=== PATIENT | male | born 1980 | race Caucasian/White ===

== ENCOUNTER 2022-05-09 13:34 | Outpatient (CLI) | payer OTHER, SELFPAY ==
[2022-05-09 16:11] LABS: Albumin* 4.8 g/dL (3.3-5.0); Chloride* 107 mmol/L (96-114); Sodium* 141 mmol/L (135-149)
[2022-05-09 16:13] LABS: Bilirubin Total* 0.8 mg/dL (0.1-1.5); Carbon Dioxide* 27 mmol/L (20-32); Cholesterol* 311 mg/dL (90-199); Creatinine* 1.1 mg/dL (0.5-1.5); Estimated Glomerular Filt Rate 86 ml/min
[2022-05-09 16:14] LABS: Alanine Aminotransferase* 46 U/L (4-50); Alkaline Phosphatase* 73 U/L (40-150); Aspartate Amino Transferase* 27 U/L (12-35); Blood Urea Nitrogen* 16 mg/dL (5-24); Glucose* 90 mg/dL (60-115); Triglycerides* 212 mg/dL (40-149)
[2022-05-09 16:15] LABS: Calcium* 9.4 mg/dL (8.4-10.6); HDL Cholesterol* 47 mg/dL (>=40); LDL Cholesterol Calculated 222 mg/dL (<100)
[2022-05-15 18:06] LABS: Immunoglobulin A 162 mg/dL (68-408)
[2022-05-16 06:30] LABS: Tissue Transglutaminase IgA <2 U/mL (0-3)
[2022-05-18 09:57] LABS: Sex Hormone Binding Globulin 11 nmol/L (17-56); Testosterone, LC-MS/MS 236 ng/dL (300-890)
== END 2022-05-09 13:35 | disposition home or self-care (01) ==
PROVIDERS: PCP Family Medicine; Visit Provider Family Medicine
DX: E78.5 Hyperlipidemia, unspecified (principal); R68.82 Decreased libido; R19.7 Diarrhea, unspecified
CPT/HCPCS: 80053; 80061; 82784; 84270; 84402; 84403; 86364

== ENCOUNTER 2022-05-21 07:11 | Outpatient (CLI) | payer OTHER, SELFPAY ==
--- NOTE | 2022-05-21 07:15 | CRLHL7_ITS ---
For Patients: As a result of the Century Cures Act, medical imaging exams and procedure reports are released immediately into your electronic medical record. You may view this report before your referring provider. If you have questions, please contact your health care provider. INDICATION: Post coital headache. TECHNIQUE: Elob-mo-outqkn MRA images acquired through the head. Axial diffusion imaging acquired through the brain. COMPARISON: None. FINDINGS: The visualized internal carotid, middle cerebral, and anterior cerebral arteries are widely patent. The vertebral, basilar, and posterior cerebral arteries are widely patent. No intracranial aneurysm or high-flow vascular malformation. No diffusion restriction to suggest acute infarction. IMPRESSION: 1. Unremarkable MRA of the head. 2. No acute infarction. Dictated by Sathya Ladd MD @ 05/21/2022 8:50:58 AM (Electronically Signed)
== END 2022-05-21 07:12 | disposition home or self-care (01) ==
LOC: MRI 07:12
PROVIDERS: PCP Family Medicine; Visit Provider Family Medicine
DX: G44.82 Headache associated with sexual activity (principal)
CPT/HCPCS: 70544

== ENCOUNTER 2023-04-19 08:32 | Outpatient (CLI) | payer OTHER, SELFPAY | END 2023-04-19 08:33 | disposition home or self-care (01) | LOC: NFLDREF 04-24 09:55 | PROVIDERS: PCP Family Medicine; Referring Provider Family Medicine; Visit Provider Family Medicine | DX: E78.5 Hyperlipidemia, unspecified (principal); R03.0 Elevated blood-pressure reading, without diagnosis of hypertension; R68.82 Decreased libido | CPT/HCPCS: 80053; 80061; 82043; 82570; 84270; 84402; 84403 ==

== ENCOUNTER 2023-05-07 19:23 | Outpatient (CLI) | payer OTHER, SELFPAY ==
--- NOTE | 2023-05-14 09:09 | W.PM.SLEEP ---
Sleep Study Details Details Interpreting Provider: Elie Date of Sleep Study: 05/07/23 Sleep Study Details: STUDY TYPE:? Home unattended ? BMI:? 28.8 ORDERING PROVIDER:? Debra INDICATION:? Concerns about sleep apnea ? SLEEP SUMMARY:? 504.2 minutes monitored RESPIRATORY SUMMARY:? AHI 53.4 worse in the supine and left lateral positions, somewhat better in prone and right lateral position Low oxygen 82 6.2% of study oxygen less than 90% Snoring 20.5% PERIODIC LIMB MOVEMENTS OF SLEEP: Not recorded during home study CARDIAC:? Range 44-99, mean 58 IMPRESSION:? Severe obstructive sleep apnea RECOMMENDATION: Best treatment option is likely CPAP AutoSet 4-17.
== END 2023-05-07 19:24 | disposition home or self-care (01) ==
LOC: SLEEP 19:24
PROVIDERS: PCP Family Medicine; Visit Provider Family Medicine
DX: G47.33 Obstructive sleep apnea (adult) (pediatric) (principal)
CPT/HCPCS: 95806

== ENCOUNTER 2024-06-17 13:20 | Outpatient (CLI) | payer OTHER, SELFPAY | END 2024-06-17 13:21 | disposition home or self-care (01) | LOC: FRMREF 13:21 | PROVIDERS: Visit Provider Nurse Practitioner Family | DX: E78.2 Mixed hyperlipidemia (principal); R89.9 Unspecified abnormal finding in specimens from other organs, systems and tissues | CPT/HCPCS: 80053; 80061 ==